=== PATIENT | female | born 1980 | race Caucasian/White ===

== ENCOUNTER 2016-11-29 07:46 | Inpatient (IN) | payer BC, MEDICAID ==
[~2016-11-29] VITALS: Ht 172.7 cm; Wt 281.0 kg
[2017-01-14] VITALS (19 sets, daily range): BP systolic 116–138; BP diastolic 51–74; PULSE 66–94; TEMP 96.8–98.3
[2017-01-14] MEDS ORDERED: TIROSINT125 MC1 PO (10:20)
[2017-01-14] MEDS ORDERED: PRENATAL1 TA7 PO (10:20)
[2017-01-14 10:52] LABS: BASO % 0.1 % (0.0-2.0); EOS # 0.1 (0.0-0.7); EOS % 1.8 % (0-4.0); GRAN # 5.4 (1.4-6.5); HEMOGLOBIN 12.1 g/dl (12.5-16.0); LYMPH # 1.1 (1.2-3.4); LYMPH % 15.8 % (20.0-51.0); MEAN CELL VOLUME 95 fl (80.0-100.0); MEAN CORPUSCULAR HEMOGLOBIN 33 pg (27.0-31.0); MEAN CORPUSCULAR HGB CONC 35 g/dl (33.0-37.0); MEAN PLATELET VOLUME 11.2 fl (7.4-10.4); MONO # 0.4 (0.1-0.6); PLATELET COUNT 151 K/mm3 (130-400); RED BLOOD COUNT 3.64 M/mm3 (4.10-5.30); REDCELL DISTRIBUTION WIDTH-CV 13.6 % (11.5-14.5); WHITE BLOOD COUNT 7.2 K/mm3 (4.8-10.8)
[2017-01-14 10:53] LABS: HEMATOCRIT 34.7 % (37.0-47.0)
[2017-01-15 03:30] VITALS: BP 115/71; PULSE 64; TEMP 97.9
[2017-01-15 07:36] LABS: HEMATOCRIT 31.1 % (37.0-47.0); HEMOGLOBIN 10.5 g/dl (12.5-16.0)
[2017-01-15 07:38] VITALS: BP 105/63; PULSE 68; TEMP 98.2
[2017-01-15 16:00] VITALS: BP 109/57; PULSE 67; TEMP 97.7
[2017-01-15 21:15] VITALS: BP 102/57; PULSE 61; TEMP 97.4
[2017-01-16 07:00] VITALS: BP 115/57; PULSE 68; TEMP 98.2
[2017-01-16] MEDS ORDERED: PERCOCET 325 MG1 TA2 PO (08:36)
[2017-01-16] MEDS ORDERED: MOTRIN 800800 MG/TAB PO (08:36)
== END 2017-01-16 12:01 | disposition home or self-care (01) | DRG 765 ==
LOC: EDSTATUS 07:46 → LDRO 10:58 → OB 01-14 08:20
PROVIDERS: Obstetrics & Gynecology
PROC: 10D00Z1 Extraction of Products of Conception, Low, Open Approach (ICD-10-PCS; principal; 2017-01-14)
PROC: 0UB70ZZ Excision of Bilateral Fallopian Tubes, Open Approach (ICD-10-PCS; 2017-01-14)
DX: O34.211 Maternal care for low transverse scar from previous cesarean delivery (principal); O98.82 Other maternal infectious and parasitic diseases complicating childbirth; B37.2 Candidiasis of skin and nail; O30.043 Twin pregnancy, dichorionic/diamniotic, third trimester; N85.8 Other specified noninflammatory disorders of uterus; O09.523 Supervision of elderly multigravida, third trimester; O99.284 Endocrine, nutritional and metabolic diseases complicating childbirth; E03.9 Hypothyroidism, unspecified; Z3A.39 39 weeks gestation of pregnancy; Z37.2 Twins, both liveborn; Z40.09 Encounter for prophylactic removal of other organ
CPT/HCPCS: A9284; J1885; J2210; J2370; J2590; J7120

== ENCOUNTER → 2022-02-11 | Outpatient (CLI) | payer BC, MEDICAID ==
[2006-06-28 07:30] VITALS: TEMP 97.8
[~2022-02-11] MED LIST: MOTRIN 800800 MG/TAB PO; PERCOCET 325 MG1 TA2 PO; PRENATAL1 TA7 PO; TIROSINT125 MC1 PO
== END ==
LOC: MC.RAD 14:00
DX: Z12.31 Encounter for screening mammogram for malignant neoplasm of breast (principal); N64.89 Other specified disorders of breast

== ENCOUNTER → 2022-03-11 | Outpatient (CLI) | payer BC ==
[2006-06-28 07:30] VITALS: TEMP 97.8
== END ==
LOC: MC.RAD 09:00
DX: N64.89 Other specified disorders of breast (principal)

== ENCOUNTER → 2024-03-30 | Outpatient (CLI) | payer BC ==
[2006-06-28 07:30] VITALS: TEMP 97.8
== END ==
LOC: MC.RAD 09:30
DX: Z12.31 Encounter for screening mammogram for malignant neoplasm of breast (principal)